=== PATIENT | male | born 2005 | race Caucasian/White ===

== ENCOUNTER 2024-07-12 23:39 | Emergency (ER) | payer BC, SELFPAY ==
[2024-07-12 23:41] VITALS: BP 123/77; PULSE 67; RESP 18; TEMP 36.6; O2SAT 98; BMI 23.7
--- NOTE | 2024-07-13 00:02 | ED.GENADULT ---
HPI - General Adult General Chief complaint: Lower Extremity Swelling Stated complaint: right leg infection Time Seen by Provider: 07/12/24 23:59 History of Present Illness HPI narrative: Patient presents to the emergency department complaining of leg pain, redness, and swelling. Patient states this started on Sunday morning . Patient described it as what he thought was a mosquito bite however the swelling has progressively spread and gotten worse. Patient was seen for this today in urgent care and placed on antibiotics. Patient was told to go to the ER if swelling or pain got worse and he believes it is continuing to get worse. 19-year-old in man presenting to the emergency department with concern of infection in his leg. Seen in urgent urgent care less than 12 hours ago with plan to monitor concern of cellulitis and possibly initiate antibiotics. Really worsened over the course the day now and pharmacy had not yet received prescription of antibiotics so he presents here as it is definitely more swollen. No noted fever. No drainage. Admittedly has not been maintaining full elevation. Related Data Home Medications ?Medication ?Instructions ?Recorded ?Confirmed No Known Home Medications 07/12/24 07/12/24 Allergies Allergy/AdvReac Type Severity Reaction Status Date / Time No Known Drug Allergies Allergy Verified 07/12/24 23:47 Review of Systems Status of ROS: Reports: 6 or more systems reviewed and unremarkable except as noted in History and below [facility] Social History Smoking Status: Never smoker How often do you have a drink containing alcohol: never How often do you have six or more drinks on one occasion: Never AUDIT-C Alcohol total score: 0 Non-prescribed substance use: denies use service: No Exam Narrative: Exam Narrative: Breathing easily. Generally seems like does not feel fully well. Seated in exam chair. Skin is warm and dry. Examination of the right lower leg in question shows 2 areas of possible bites. Lateral lower leg more inflamed around this site. Leg is generally mildly edematous, pitting and tender. Erythema extends through majority of the lower leg. Calor as well. Heart is regular rate Const: Vital Signs, click to edit/add: Vital Signs - 24 hr 07/12/24 23:41 Temperature 98 F Pulse Rate [Right Pulse Oximeter] 67 Respiratory Rate 18 Blood Pressure [Ri ght Upper Arm] 123/77 Pulse Oximetry 98 Oxygen Delivery Me thod Room Air Documenting provider has reviewed patient's vital signs: yes Course Vital Signs Vital signs: Initial Vital Signs Temperature 98 F 07/12/24 23:41 Temperature Source Temporal Artery Scan 07/12/24 23:41 Pulse Rate 67 07/12/24 23:41 Pulse Rhythm Regular 07/12/24 23:41 Pulse Strength 3+ Normal 07/12/24 23:41 Respiratory Rate 18 07/12/24 23:41 Blood Pressure 123/77 07/12/24 23:41 Blood Pressure Mean 92 07/12/24 23:41 Blood Pressure Position Sitting 07/12/24 23:41 Pulse Oximetry 98 07/12/24 23:41 Oxygen Delivery Method Room Air 07/12/24 23:41 Vital Signs Temperature 98 F 07/12/24 23:41 Pulse Rate 67 07/12/24 23:41 Respiratory Rate 18 07/12/24 23:41 Blood Pressure 123/77 07/12/24 23:41 Pulse Oximetry 98 07/12/24 23:41 Oxygen Delivery Method Room Air 07/12/24 23:41 Temperature 98 F 07/12/24 23:41 Pulse Rate 67 07/12/24 23:41 Respiratory Rate 18 07/12/24 23:41 Blood Pressure 123/77 07/12/24 23:41 Pulse Oximetry 98 07/12/24 23:41 Oxygen Delivery Method Room Air 07/12/24 23:41 Medications Administered Medications: Discontinued Medications Generic Name Dose Route Start Last Admin Trade Name Freq PRN Reason Stop Dose Admin Sodium Chloride 1,000 mls @ 1,000 mls/hr 07/13/24 00:08 07/13/24 02:15 0.9 % Sodium Chloride 1000 Ml IV 07/13/24 01:07 Infused .Q1H ONE Infusion Ceftriaxone Sodium 2 gm/ 100 mls @ 200 mls/hr 07/13/24 01:10 07/13/24 02:15 Sodium Chloride IVPB 07/13/24 01:11 Infused ONCE ONE Infusion Medical Decision Making MDM Narrative Medical decision making narrative: Elevating a little better here in this exam chair. Differential is inflammatory reaction related to insect bite plus/minus associated cellulitis. Will check labs for baseline. Normal white count but CRP moderately elevated. I think it would be a good idea to get started on antibiotics here in the emergency department. Placing IV, given Rocephin. As recommended earlier today, I think cephalexin is a reasonable choice for antibiotic coverage. Erythema lightly improved after. Elevation in the emergency department. Given some Tye wraps for compression as well. See patient discharge plan for further discussion Lab Data Lab results reviewed: Yes I reviewed the patient's lab results Labs: Lab Results 07/13/24 Range/Units 00:44 WBC 10.33 (4.50-11.00) K/uL RBC 5.09 (4.30-5.90) m/uL Hgb 14.8 (13.5-17.5) gm/dL Hct 43.7 (37.0-53.0) % MCV 86 (80-100) fL MCH 29 (26-34) pg MCHC 34 (32-36) gm/dL RDW Coeff of Kevyn 12.5 (11.5-15.5) % Plt Count 244 (140-440) K/uL Neut % (Auto) 67.9 (42.0-72.0) % Lymph % (Auto) 21.6 (20-44) % [place] % (Auto) 9.5 (0.0-11.0) % Eos % (Auto) 0.1 (0.0-7.0) % Baso % (Auto) 0.5 (0.0-3.0) % Neut # (Auto) 7.02 H (1.7-7.0) K/uL Lymph # (Auto) 2.23 (0.90-2.90) K/uL [place] # (Auto) 1.00 H (0.00-0.90) K/UL Eos # (Auto) 0.01 (0.00-0.50) K/uL Baso # (Auto) 0.05 (0.00-0.30) K/uL Abs Immat Gran (auto) 0.04 (0.00-0.30) K/uL Imm/Tot Granulo (auto) 0.4 % C-Reactive Protein 4.1 H (0.5-1.0) mg/dL Discharge Plan Discharge Clinical Impression: Cellulitis Patient Disposition: Home, Self-Care Condition: Improved Additional Instructions: It's really important that at rest you get this leg up as discussed. I would consider wrapping around the foot and ankle with the 4 in Tye wrap and then further up the leg with the six-inch Tye wrap. The six-inch Tye wrap is also helpful to hold on ice packs. Be seen for spreading redness after 2 days, new fever, marked increase in swelling or pain. Your received initial dose of Rocephin here in the emergency department. As per your visit in urgent care earlier, I am prescribing cephalexin from [facility]. Take this for 8 days Prescriptions: No Action No Known Home Medications Follow Up/Referrals: Provider,Not a Local [Primary Care Provider] - Stand Alone Forms: [employer] Info Instructions
--- OUTSIDE RECORDS SUMMARY | 2024-07-13 00:26 | XMS_ITS | Clinical Summary ---
Author Organization [facility] Address [address] [place] [address] Care Team Providers Care Shoe Planner Name Role Phone Elsewhere, Pcp Primary Care Provider Unavailabl e Source Comments Patient records contain information from all sites at [facility]. For routine questions regarding patient records, call [phone] during business hours, M-F 8:00 AM - 5:00 PM Central Time. Record requests for emergency care only can be directed to [phone] at any time.[facility] Allergies No known active allergies Medications Medication Sig Dispensed Refills Start Date End Date Status acetaminophen (TYLENOL) 325 mg tablet Take 650 mg by mouth every 6 (six) hours as needed. Active DME CPAPIndications:Obstruc tive Sleep Apnea Adult DME Order 1 each 03/22/2023 Active Active Problems Problem Noted Date Diagnosed Date Long QT Syndrome 12/26/2016 Encounters Date Type Department Care Team Description 06/22/2024 CPAP Download Remote Patient Monitoring [facility] [address] [place] [address] [facility] 05/27/2024 4:30 PM CDT - 05/27/2024 11:59 PM CDT Hospital Encounter Department of Radiology, [facility], in [place], [place] [address] [place] [address] Anthony Brown M.D. Pain Knee Left Discharge Disposition: Home or Self Care 05/27/2024 3:30 PM CDT Comprehensive Visit Department of Sports Medicine in [place], [place] [address] [place] [phone] Anthony Brown M.D. Ron Capps P.T., D.P.T. Pain Knee Left (Primary Dx) 05/27/2024 2:30 PM CDT Comprehensive Visit Department of Sports Medicine in [address] [phone] Anthony Brown M.D. Pain Knee Left (Primary Dx) 05/27/2024 10:48 AM CDT - 05/27/2024 4:29 PM CDT Hospital Encounter Department of Radiology, [facility], in [address] [phone] Anthony Brown M.D. Pain Knee Left Discharge Disposition: Home or Self Care 05/26/2024 9:00 AM CDT Telemedicine [facility] in [address] [phone] Jeffrey Mata M.B.B.S., MMiguel Obstructive Sleep Apnea Adult (Primary Dx) 05/22/2024 4:45 PM CDT Clinical Communication Virtual Review in [address] [phone] Pre-visit Intake 05/22/2024 CPAP Download Remote Patient Monitoring [facility] [address] [place] [phone] [facility], ProviderKalin, Ph.D. 05/02/2024 Orders Only Department of Sports Medicine in [address] [phone] Anthony Brown M.D. Pain Knee Left (Primary Dx) 04/21/2024 CPAP Download Remote Patient Monitoring [facility] [address] [place] [phone] [facility], ProviderKalin, Ph.D. from Last 3 Months Immunizations Name Administration Dates Next Due 9vHPV 07/19/2021,03/04/2021,01/20/2021 DTaP (Infanrix, Tripedia) 05/29/2007,08/05/2004 DTaP / Hep B / IPV (Pediarix) 2003, 003,2003 H1N1 All Forms 10/21/2009,09/13/2009 HepA Adult 11/10/2011,06/21/2011 HepA Pediatric/Adolescent 11/10/2011,06/21/2011 Hib (PRP-OMP) (PedvaxHIB) 2004,2003, 2003 IPV 05/29/2007 Influenza TIV (IM) 10/21/2009, 9,08/07/2008,2005,08/08/2005,09/21/2004,07/25/2004 Influenza, Injectable, Mdck, Preservative Free, Quadrivalent 08/11/2016,08/20/2015,08/21/2013,2007,07/16/2006,09/21/2004 Influenza, Injectable, Mdck, Quadrivalent 08/23/2012,06/21/2011,08/11/2010,2009,09/13/2009,06/23/2009,08/08/2005,1 Influenza, Injectable, Quadrivalent 01/2016,08/20/2015,08/21/2013,2007,07/16/2006,09/21/2004 MCV4 (Menveo) 04/29/2020,04/26/2016 MMR 08/05/2004 MMRV 05/29/2007 PCV20 12/19/2023 PCV7 (discontinued) 08/05/2004, 4,2003,2002 Rabies, Unspecified 04/05/2004, 4,03/15/2004,2003,03/08/2004 SARS-COV-2 (COVID-19) - PFIZ ER BIVALENT TS(Discontinued)(12 YEARS OR OLDER) 09/26/2022 Tdap 04/26/2016 Ty21a (oral) 12/19/2023 FRANSISCO 2004 influenza LAIV (Nasal) (2 ye ars through 49 years) 08/23/2012,06/21/2011,08/11/2010,2008 influenza trivalent vaccine (6 months and older)(PF) 10/21/2009,09/13/2009 influenza vaccine quad (FLUZONE/FLUARIX) (6 months and older)(PF) 12/19/2023,09/26/2022,09/28/2021,2019,06/30/2019,06/26/2018,08/29/2017,1 10/11/2015,08/20/2015,07/09/2014, 013,08/23/2012,06/21/2011,08/11/2010,,09/13/2009,06/23/2009 Social History Tobacco Use Types Packs/Day Years Used Date Smoking Tobacco: Never Tobacco Cessation:Counseling Given: Not Answered [facility] [employer] Answer Date Recorded In the past 12 months has e [employer], gas, oil, or water [employer] threatened to shut off services in your home? No 05/22/2024 Humiliation, Afraid, Rape, and Kick questionnair e Answer Date Recorded Within the last year, have y ou been afraid of your partner or ex-partner? No 03/20/2023 Within the last year, have y ou been humiliated or emotionally abused in other ways by your partner or ex-partner? No Within the last year, have y ou been kicked, hit, slapped, or otherwise physically hurt by your partner or ex-partner? No 03/20/2023 Within the last year, have y ou been raped or forced to have any kind of sexual activity by your partner or ex-partner? No 03/20/2023 Social Connection and Isolat ion Panel [NHANES] Answer Date Recorded In a typical week, how many times do you talk on the phone with family, friends, or neighbors? More than three times a week 02/19/2023 How often do you get togethe r with friends or relatives? More than three times a week 02/19/2023 How often do you attend [facility] or druze services? 1 to 4 times per year 02/19/2023 Do you belong to any clubs o r organizations such as synagogue groups, unions, fraternal or athletic groups, or school groups? Yes 02/19/2023 How often do you attend meet ings of the clubs or organizations you belong to? More than 4 times per year 02/19/2023 Are you , , di vorced, , never , or living with a partner? Never 02/19/2023 AUDIT-C Answer Date Recorded Q1: How often do you have a drink containing alc ohol? 2-4 times a month 02/19/2023 Q2: How many drinks containi ng alcohol do you have on a typical day when you are drinking? 5 or 6 02/19/2023 Q3: How often do you have si x or more drinks on one occasion? Less than monthly 02/19/2023 Overall Financial Resource Strain (CARDIA) Answe r Date Recorded How hard is it for you to pa y for the very basics like food, housing, medical care, and heating? Not hard at all 03/20/2023 [facility] - Occupational Stress Questionnaire Answer Date Recorded Do you feel stress - tense, restless, nervous, or anxious, or unable to sleep at night because your mind is troubled all the time - these days? Only a little 02/19/2023 Exercise Vital Sign Answer Date Recorde d On average, how many days pe r week do you engage in moderate to strenuous exercise (like a brisk walk)? 5 days 05/22/2024 On average, how many minutes do you engage in exercise at this level? 30 min 05/22/2024 Hunger Vital Sign Answer Date Recorded Within the past 12 months, y ou worried that your food would run out before you got the money to buy more. Never true 05/22/20 24 Within the past 12 months, t he food you bought just didn't last and you didn't have money to get more. Never true 05/22/2024 PRAPARE - Transportation Answer Date Re corded In the past 12 months, has l ack of transportation kept you from medical appointments or from getting medications? No 05/08 In the past 12 months, has l ack of transportation kept you from meetings, work, or from getting things needed for daily living? No 05/22/2024 Nutrition Answer Date Recorded On average, how many serving s of fruits and vegetables do you eat per day (serving size is equal to 1 cup or approximately the size of a tennis ball)? 3-5 05/22/2024 Dental Answer Date Recorded Dental: Regular Dentist Yes 10/11/19 Employment Answer Date Recorded Employment status Employed and actively working without restrictions 05/22/2024 Housing Stability Answer Date Recorded What is your living situation today? I have a [facility] [address] to live 05/22/2024 Education Answer Date Recorded What is the highest level of school you have completed or the highest degree you have received? 12th grade 02/19/2023 Sex and Gender Information Value Date Recorded Sex Assigned at Male 10/11/2021 4:56 PM [employer] Gender Identity Male 10/11/2021 4:56 PM [employer] Sexual Orientation Straight 10/11/2021 4: 56 PM [employer] Last Filed Vital Signs Vital Sign Reading Time Taken Comments Blood Pressure - - Pulse - - Temperature - - Respiratory Rate - - Oxygen Saturation - - Inhaled Oxygen Concentration - - Weight 93.5 kg (206 lb 2.1 oz) 12/19/2023 8:43 A M CDT Height 199 cm (6' 6.35) 12/19/2023 8:43 AM CDT Body Mass Index 23.61 12/19/2023 8:43 AM CDT Plan of Treatment Health Maintenance Due Date Last Done Comments HIV Screening 2003 Hearing Screening during Wel l Child Visit 2003 Hepatitis C Screening [address] [facility] Chi ld Visit 2003 1 week Well Child Check-Up 2003 1 month Well Child Check-Up 2003 2 month Well Child Check-Up 2003 4 month Well Child Check-Up 2003 6 month Well Child Check-Up 2003 9 month Well Child Check-Up 01/11/2004 12 month Well Child Check-Up 04/11/2004 15 month Well Child Check-Up 07/12/2004 18 month Well Child Check-Up 10/12/2004 2 year Well Child Check-Up 04/11/2005 30 month Well Child Check-Up 10/12/2005 3 year Well Child Check-Up 04/11/2006 Well Child Check-Up Complete d in Past Year 04/11/2006 4 year Well Child Check-Up 04/11/2007 5 year Well Child Check-Up 04/11/2008 6 year Well Child Check-Up 04/11/2009 7 year Well Child Check-Up 04/11/2010 8 year Well Child Check-Up 04/11/2011 9 year Well Child Check-Up 04/11/2012 10 year Well Child Check-Up 04/11/2013 11 year Well Child Check-Up 04/11/2014 12 year Well Child Check-Up 04/11/2015 13 year Well Child Check-Up 04/11/2016 14 year Well Child Check-Up 04/11/2017 15 year Well Child Check-Up 04/11/2018 16 year Well Child Check-Up 04/11/2019 17 year Well Child Check-Up 04/11/2020 18 year Well Child Check-Up 04/11/2021 19 year Well Child Check-Up 04/11/2022 20 year Well Child Check-Up 04/11/2023 Depression Screening (Annual PHQ-2) 10/08/2023 19 year Well Child Check-Up 04/11/2024 Well Child Check-Up (WCC) 04/11/2024 COVID-19 Vaccine (5 - 2023-2 5 season) 2024 09/26/2022, 03/01/2022, 09/28/2021, Additional history exists Influenza Vaccine (#1) 2024 , 09/26/2022, 09/28/2021, Additional history exists DTaP,Tdap,and Td Vaccines (7 - Td or Tdap) 04/26/2026 04/26/2016, 05/29/2007, 08/05/2004, Additional history exists Hepatitis B Vaccines Completed 2003, 2003, 2003 Varicella Vaccines Completed 05/29/2007, 2004 Meningococcal Vaccine Completed 04/29/2020, 016 HPV Vaccines Completed 07/19/2021, 02/06, 01/20/2021 Pneumococcal vaccine (0-64 years) Completed 12/19/2023, 08/05/2004, 2003, Additional history exists Procedures Procedure Name Priority Date/Time Associated Diagnosis Comments MR KNEE LEFT WITHOUT IV CONTRAST RAD - Routine (most inpatients and all outpatients) 05/27/2024 6:07 PM CDT Pain Knee Left DX KNEE LEFT 3 VIEWS RAD - Routine (most inpatients and all outpatients) 05/27/2024 11:20 AM CDT Pain Knee Left from Last 3 Months Results * MR Knee Left without IV Contrast (05/27/2024 6:07 PM CDT) Anatomical Region Laterality Modality Lower Extremity, Knee, Muscu loskeletal RST LOS, Musculoskeletal ARZ LOS, Muskuloskeletal FLA LOS Left Magne tic Resonance Impressions 05/28/2024 11:13 AM CDT 1. Persistent mild T2 hyperintense signal involving the proximal superficial MCL, suggestive of chronic low-grade sprain. No high-grade or full-thickness tear. 2. Approximately 2.4 cm multilobulated ganglion cyst in the anteromedial left knee joint, increased in size since 12/21/2022. Narrative 05/28/2024 11:13 AM CDT EXAM: ??MR KNEE LEFT WITHOUT IV CONTRAST COMPARISON: ??Left knee radiographs 05/27/2024, MRI 12/21/2022. FINDINGS: ??MRI of the left knee without gadolinium. Normal ACL and PCL. There is mild persistent T2 hyperintense signal within and along the superficial MCL origin, particularly at its undersurface (series 5 image 20, series 9 images 13-16). The MCL is otherwise intact, without high-grade or full-thickness tear. The LCL, popliteus, and remainder of the posterolateral corner structures are unremarkable. Mild proximal patellar tendinopathy. The extensor mechanism is intact. Normal pes anserine tendons. Normal appearance of the medial and lateral menisci, without a discrete tear. Articular cartilage is preserved throughout the joint. No bone marrow edema or acute fracture. Trace knee joint effusion. Extremely tiny Gutierrez's cyst. Compared to the prior MRI, increased size of a multilobulated ganglion cyst in the anterior knee. Its posterior margin is near the distal ACL and anterior root of the lateral meniscus, and it extends anteriorly into the inferomedial aspect of Hoffa's fat pad. In total, this measures approximately 2.4 x 1.8 x 1.2 cm (series 5 image 28-30, series 9 image 22). Mild reticulated edema-like signal in Hoffa's fat pad. Muscular signal intensity and bulk is normal. Unremarkable neurovascular structures. Procedure Note Marti Flores M.D. - 05/28/2024 EXAM: MR KNEE LEFT WITHOUT IV CONTRAST COMPARISON: Left knee radiographs 05/27/2024, MRI 12/21/2022. FINDINGS: MRI of the left knee without gadolinium. Normal ACL and PCL. There is mild persistent T2 hyperintense signal withinand along the superficial MCL origin, particularly at its undersurface(series 5 image 20, series 9 images 13-16). The MCL is otherwise intact,without high-grade or full-thickness tear. The LCL, popliteus, and remainder of theposterolateral corner structures are unremarkable. Mild proximal patellartendinopathy. The extensor mechanism is intact. Normal pes anserinetendons. Normal appearance of the medial and lateral menisci, without a discretetear. Articular cartilage is preserved throughout the joint. No bonemarrow edema or acute fracture. Trace knee joint effusion. Extremely tiny Gutierrez's cyst. Compared to the prior MRI, increased size of a multilobulated ganglioncyst in the anterior knee. Its posterior margin is near the distal ACL andanterior root of the lateral meniscus, and it extends anteriorly into theinferomedial aspect of Hoffa's fat pad. In total, this measures approximately 2.4 x 1.8 x 1.2 cm (series 5image 28- 30, series 9 image 22). Mild reticulated edema-like signal inHoffa's fat pad. Muscular signal intensity and bulk is normal. Unremarkable neurovascularstructures. IMPRESSION: 1. Persistent mild T2 hyperintense signal involving the proximalsuperficial MCL, suggestive of chronic low-grade sprain. No high-grade orfull-thickness tear. 2. Approximately 2.4 cm multilobulated ganglion cyst in the anteromedialleft knee joint, increased in size since 12/21/2022. Anthony Brown M.D. [facility] MRI PROCEDURES * DX Knee Left 3 Views (05/27/2024 11:20 AM CDT) Anatomical Region Laterality Modality Lower Extremity, Knee, Muscu loskeletal RST LOS, Musculoskeletal ARZ LOS, Muskuloskeletal FLA LOS Left Digit al Radiography Impressions 05/27/2024 11:45 AM CDT Left knee joint spaces are preserved. No significant effusion. No radiographic fractures. Unchanged slight chronic-appearing deformity medial proximal fibular shaft. Narrative 05/27/2024 11:45 AM CDT EXAM: ??DX KNEE LEFT 3 VIEWS Procedure Note Ethan Shields M.D. - 05/27/2024 EXAM: DX KNEE LEFT 3 VIEWS IMPRESSION: Left knee joint spaces are preserved. No significant effusion. Noradiographic fractures. Unchanged slight chronic-appearing deformitymedial proximal fibular shaft. Anthony Brown M.D. IMG DIAGNOSTIC IMAGI NG PROCEDURES from Last 3 Months Care Teams Shoe Planner Relationship Specialty Start Date End Date Elsewhere, Pcp PCP - General Internal Medicine 03/20/23
--- OUTSIDE RECORDS SUMMARY | 2024-07-13 00:26 | XMS_ITS | Encounter Summary ---
Author Organization [facility] Address [address] [place] [address] Care Team Providers Care Inspector Conveyor Line Name Role Phone Elsewhere, Pcp Primary Care Provider Unavailabl e Reason for Referral * Outpatient (Routine) - Closed Specialty Diagnoses / Procedures Referred By Contac t Referred To Contact Diagnoses Pain Knee Left Procedures DX Knee Left 3 Views Anthony Brown M.D. 200 [place] [phone] [facility] Referral ID Status Reason Start Date Expiration Date Visits Re quested Visits Authorized [id number] Closed 05/02/2024 05/02/2025 1 1 Reason for Visit * Outpatient (Routine) - Closed Specialty Diagnoses / Procedures Referred By Contac t Referred To Contact Diagnoses Pain Knee Left Procedures DX Knee Left 3 Views Anthony Brown M.D. 200 [place] [phone] [facility] Referral ID Status Reason Start Date Expiration Date Visits Re quested Visits Authorized [id number] Closed 05/02/2024 05/02/2025 1 1 Encounter Details Date Type Department Care Team (Latest Contact Info) Description 05/27/2024 10:48 AM CDT - 05/27/2024 4:29 PM CDT Hospital Encounter Department of Radiology, [facility], in [place], [place] 200 [place] [phone] Anthony Brown M.D. 200 [place] [phone] Pain Knee Left Discharge Disposition: Home or Self Care Social History Tobacco Use Types Packs/Day Years Used Date Smoking Tobacco: Never [facility] Utilities Answer Date Recorded In the past 12 months has e [employer], gas, oil, or water [employer] threatened to shut off services in your [...] week 02/19/2023 How often do you attend chur ch or hoahaoism services? 1 to 4 times per year 02/19/2023 Do you belong to any clubs o r organizations such as mu-ism groups, unions, fraternal or athletic groups, or [...] and heating? Not hard at all 03/20/2023 [facility] - Occupational Stress Questionnaire Answer Date Recorded [...] your living situation today? I have a [facility] place to live 05/22/2024 Education Answer Date Recorded What is the highest level of school you have completed or the highest degree you have received? 12th grade 02/19/2023 Sex and Gender Information Value Date Recorded Sex Assigned at Male 10/11/2021 4:56 PM VENDOR REPRESENTATIVES Gender Identity Male 10/11/2021 4:56 PM VENDOR REPRESENTATIVES Sexual Orientation Straight 10/11/2021 4: 56 PM VENDOR REPRESENTATIVES documented as of this encounter Medications at Time of Discharge Medication Sig Dispensed Refills Start Date End Date acetaminophen (TYLENOL) 325 mg tablet Take 650 mg by mouth every 6 (six) hours as needed. DME CPAPIndications:Obstructiv e Sleep Apnea Adult DME Order 1 each 03/22/2023 documented as of this encounter Plan of Treatment Not on file documented as of this encounter Procedures Procedure Name Priority Date/Time Associated Diagnosis Comments DX KNEE LEFT 3 VIEWS RAD - Routine (most inpatients and all outpatients) 05/27/2024 11:20 AM CDT Pain Knee Left documented in this encounter Results * DX Knee Left 3 Views (05/27/2024 [...] slight chronic-appearing deformitymedial proximal fibular shaft. Anthony MALIK DIAGNOSTIC IMAGI NG PROCEDURES documented in this encounter Visit Diagnoses Diagnosis Pain Knee Left documented in this encounter Additional Health Concerns Assessment Noted Time PHQ-9 Depression Total Score: 4 10/09/19 18 12:01 AM VENDOR REPRESENTATIVES documented as of this encounter Care Teams Inspector Conveyor Line Relationship Specialty Start Date End Date Elsewhere, Pcp PCP - General Internal Medicine 03/20/23 documented as of this encounter
--- OUTSIDE RECORDS SUMMARY | 2024-07-13 00:26 | XMS_ITS | Encounter Summary ---
Author Organization [facility] Address [address] [place] [address] Care Team Providers Care Machine Shop Supervisor Name Role Phone Elsewhere, Pcp Primary Care Provider Unavailabl e Reason for Visit * Outpatient (Routine) - Closed Specialty Diagnoses / Procedures Referred By Fausto chery Referred To Contact Sports Medicine Diagnoses Pain Knee Left Anthony Brown M.D. [address] [place] [phone] [facility] Referral ID Status Reason Start Date Expiration Date Visits Re quested Visits Authorized [id number] Closed 05/02/2024 11/01/2025 1 1 Encounter Details Date Type Department Care Team (Latest Contact Info) Description 05/27/2024 3:30 PM CDT Comprehensive Visit Department of Sports Medicine in [place], [place] [address] [place] [phone] Anthony Brown M.D. [address] [place] [phone] Ron Capps P.T., D.P.T. [address] [place] [phone] Pain Knee Left (Primary Dx) Social History Tobacco Use Types Packs/Day Years Used Date Smoking Tobacco: Never [facility] Utilities Answer Date Recorded In the past 12 months has e [employer], [employer], oil, or water [employer] threatened to shut off services in your [...] often do you attend chur ch or synagogue services? 1 to 4 times per year 02/19/2023 Do you belong to any clubs o r organizations such as restoration groups, unions, fraternal or athletic groups, or [...] and heating? Not hard at all 03/20/2023 [facility] - Occupational Stress Questionnaire Answer Date Recorded [...] Sex Assigned at Male 10/11/2021 4:56 PM HOME CONNECT LPN Gender Identity Male 10/11/2021 4:56 PM HOME CONNECT LPN Sexual Orientation Straight 10/11/2021 4: 56 PM HOME CONNECT LPN documented as of this encounter Consult Notes * Ron Capps P.T., D.P.T. - 05/27/2024 3:30 PM CDT Sports Medicine Physical Therapy Visit SUBJECTIVE Patient's Name: Doug Colmenares Referring Provider: Anthony Brown M.D. Visit Diagnosis: 1. Pain Knee Left Payor: [employer] / Plan: [facility] / Product Type: PPO / Epic Visit Count: 1 PERTINENT MEDICAL / SURGICAL HISTORY: Patient Active Problem List Diagnosis Long QT Syndrome No past surgical history on file. Doug Colmenares is a 19 y.o. male who presented to sports medicine physical therapy for evaluation of left medial knee pain. PMH: Patient reports the onset of symptoms early 2022 when he describes an acute valgus moment of the knee while learning to cross country ski. At that time was able to weightbear, does note significant swelling at that time. MRI obtained about a month later demonstrated an MCL injury. Participatedin PT for 3 visits then was diligent about doing those exercises on his own at college. Symptoms did improve to the point that he was able to participate in water polo in the fall of 2022 although notes that he had to modify how he kicked with his left. Was playing basketball but required use of hinged knee brace. Spent most of the spring of 2023 hiking/backpacking (no swimming, water polo, basketball) while studying abroad and noticed gradual worsening of pain. Occasional tweaking of knee whenwalking on uneven ground, however no major injury since the initial one. Most recently has been running, strength training, and swimming however need to modify his kick on the left. Pain Summary: Location of pain: medial knee, points to anteromedial knee as main location of pain How would you describe your pain: achy, sharp, stabbing, and throbbing Scale 0-10 patient rates pain: 7/10 at its worse, 0/10 at its best Patient reports the following alleviating factors: rest and stretching, strengthening Patient reports the following exacerbating factors: Breast stroke kicks, treading water, quick pivoting/cutting movements. Running, walking, standing will aggravate after a prolonged period of time. Social History: Current Activity Level: Able to perform most tasks but pain persists Patient's Goal(s): Understand what he can do to improve his knee OBJECTIVE Diagnostic Tests: Imaging No results found. Observation: no swelling, deformity, or discoloration Tenderness to palpation: none Range of motion: Symmetric and pain free Special tests: The following special tests were negative: Valgus Stress (30 degrees), Varus Stress (30 degrees), and Rocío's Gait: no obvious abnormalities TREATMENT Review of above findings, interventions to address findings, and appropriate modifications/progressions for interventions and activities Review, discussion, and collaboration regarding goals and plan of care Reviewed that patient has the right to make decisions regarding their care, including refusal of examination or treatment and can select services from another provider if desired Education: Discussed reduced proprioceptive sense within the knee impacted limb that could have onset after initial injury. Recommended prioritization of single-leg exercises that challenge the lateral and medial musculature of the hip Home Exercise Program: Warm-Up: Stationary Bike: 5 minutes Primary Exercises (3 times per week) Lateral mini-band walks: 4 x 10yds., green resistance band Note: maintain low trunk position with shoulders up, avoid bobbing movements. Should primary feelexercise in the lateral hip. Single leg RDL: 3 x 12 Note: as you improve progress to resisted single leg movements (i.e., adding 5- 10 pounds), left legwill be on the ground while reaching with right hand Isometric side-plank on plyometric box: 3 x 10s, 12 plyometric box; progress to long-lever movement as able (i.e., straight leg without knee in contact with box) [facility] ball toss: 4 x 6e, 8lbs resistance Note: ball toss should be at shoulder level All the patient's questions were answered. Assessment Clinical Impression: Doug is a 19 y.o. male who presented to physical therapy with concerns of persisting medial knee pain with valgus stressors. Upon assessment, he demonstrated relative instability with single-leg hinge patterns that could be indicative of reduced lateral hip strength and proprioception. We provided him with a series of exercises that challenge both his balance and proximalhip musculature. Recommended that he connect with us at sports medicine if he has additional questions. He would benefit from skilled physical therapy to address the above impairments, limitations, and deficits. I anticipate he will be able to return to prior level of function with continued skilled physical therapy. Doug has good potential to achieve established physical therapy goals within thetime frame outlined below, provided he actively participates in his physical therapy treatment planand home program. Patient agrees with the plan of care and goals. Functional Goals and Timeframes: Patient will be able to resume full participation in water polo with minimal to no discomfort within 3 months. Patient will report greater than 3+ on Global Rating of Change (GROC) within 2 visits. Plan Treatment Plan: Start of Plan of Care: 05/27/2024 Treatment interventions may include: Treatment/Interventions: Therapeutic exercise, Therapeutic functional activity, Neuromuscular re-education, Manual therapy, Gait training, Therapeutic modalities as needed PT Frequency: 1x per week, PRN Expected Number of Visits: 6 Plan Status: Plan of care initiated Additional Plan Comments: Progress with single leg movements as able Billing Summary: Personal factors and/or comorbidities (3 is moderate complexity): none none Examination elements (body structures & functions, activity limitations, participation restrictions): 1-2 Clinical presentation: Stable or uncomplicated characteristics Clinical decision making complexity: Low Time Spent with Patient Evaluations PT Eval - Low Complexity: 10 min Therapeutic Interventions Therapeutic Exercise (min): 25 min Time Tracking Total Timed Units (min): 25 min Total Treatment Time (min): 35 min Ron Capps P.T., D.P.T. documented in this encounter Plan of Treatment Not on file documented as of this encounter Visit Diagnoses Diagnosis Pain Knee Left- Primary documented in this encounter Additional Health Concerns Assessment Noted Time PHQ-9 Depression Total Score: 4 10/09/19 18 12:01 AM HOME CONNECT LPN documented as of this encounter Care Teams Machine Shop Supervisor Relationship Specialty Start Date End Date Elsewhere, Pcp PCP - General Internal Medicine 03/20/23 documented as of this encounter
--- OUTSIDE RECORDS SUMMARY | 2024-07-13 00:26 | XMS_ITS | Encounter Summary ---
Author Organization [facility] Address [address] [place] [address] Care Team Providers Care Cotton Buyer Name Role Phone Elsewhere, Pcp Primary Care Provider Unavailabl e Reason for Visit * Outpatient (Routine) - Closed Specialty Diagnoses / Procedures Referred By Fausto chery Referred To Contact Sleep Medicine Kaelyn Ann M.D. [address] [place] [phone] [facility] Referral ID Status Reason Start Date Expiration Date Visits Re quested Visits Authorized [id number] Closed 03/22/2023 03/21/2026 1 1 Encounter Details Date Type Department Care Team (Late st Contact Info) Description 05/26/2024 9:00 AM CDT Tele[facility]icine [facility] in [place], [place] [address] [place] [phone] Jeffrey Mata M.B.B.S., M.D. [address] [place] [phone] Obstructive Sleep Apnea Adult (Primary Dx) Social History Tobacco Use Types Packs/Day Years Used Date Smoking Tobacco: Never [facility] Utilities Answer Date Recorded In the past 12 months has e electric, gas, oil, or water company threatened to shut off services in your [...] week 02/19/2023 How often do you attend [facility] or rastafarian services? 1 to 4 times per year 02/19/2023 Do you belong to any clubs o r organizations such as pentecostal groups, unions, fraternal or athletic groups, or [...] and heating? Not hard at all 03/20/2023 [facility] Occup[facility] ional [facility] - Occupational Stress [...] your living situation today? I have a [facility] place to live 05/22/2024 Education Answer Date Recorded What is the highest level of school you have completed or the highest degree you have received? 12th grade 02/19/2023 Sex and Gender Information Value Date Recorded Sex Assigned at Male 10/11/2021 4:56 PM CHIP BIN CONVEYOR TENDER Gender Identity Male 10/11/2021 4:56 PM CHIP BIN CONVEYOR TENDER Sexual Orientation Straight 10/11/2021 4: 56 PM CHIP BIN CONVEYOR TENDER documented as of this encounter Progress Notes * Jeffrey Mata M.B.B.S., M.D. - 05/26/2024 9:00 AM CDT ROUTINE CPAP RETURN Doug is a now 19-year-old who was diagnosed with mild obstructive sleep apnea following a sleepstudy on the 31 October 2021 which showed an AHI of 7. He was on auto CPAP with pressures set between 5-12. Was last seen at the sleep center on the 16 December 2021. He was doing reasonably well onCPAP. On interview today he tells me that he continues to do well on CPAP. He is using it most nights. Hewas traveling in March and had stopped using his CPAP at that point. He tells me that he noticed that his sleep was not as good at that time. Otherwise he notes that he has no problems with sleep initiation and maintenance. He does not note any snoring or catathrenia while using CPAP. He feels rested upon awakening. I do not have a download from today to review. VITAL SIGNS Current Outpatient Medications: acetaminophen (TYLENOL) 325 mg tablet, Take 650 mg by mouth every 6 (six) hours as needed., Disp: ,Rfl: DME CPAP, DME Order, Disp: 1 each, Rfl: 0 ASSESSMENT / PLAN #1 Mild obstructive sleep apnea with good initial response to CPAP Plan: 1. He should continue to remain on CPAP and use it regularly as he is currently doing. 2. If he were to require a renewal prescription he can let us know. 3. Follow-up can be every 3 years. documented in this encounter Plan of Treatment Not on file documented as of this encounter Visit Diagnoses Diagnosis Obstructive Sleep Apnea Adult- Primary documented in this encounter Additional Health Concerns Assessment Noted Time PHQ-9 Depression Total Score: 4 10/09/19 18 12:01 AM CHIP BIN CONVEYOR TENDER documented as of this encounter Care Teams Cotton Buyer Relationship Specialty Start Date End Date Elsewhere, Pcp PCP - General Internal Medicine 03/20/23 documented as of this encounter
--- OUTSIDE RECORDS SUMMARY | 2024-07-13 00:26 | XMS_ITS | Referral Summary ---
Author Organization [facility] Address [address] [place] [address] Care Team Providers Care Diver Helper Name Role Phone Elsewhere, Pcp Primary Care Provider Unavailabl e Source Comments Patient records contain information from all sites at [facility]. For routine questions regarding patient records, call [phone] during business hours, M-F 8:00 AM - 5:00 PM Central Time. Record requests for emergency care only can be directed to [phone] at any time.[facility] Encounters Date Type Department Care Team Description 06/22/2024 CPAP Download Remote Patient Monitoring [facility] 200 [place] [phone] [facility], Kalin Montoya, Ph.D. 05/27/2024 4:30 PM CDT - 05/27/2024 11:59 PM CDT Hospital Encounter Department of Radiology, [facility] in [place], [place] [address] [place] [phone] Anthony Brown M.D. Pain Knee Left Discharge Disposition: Home or Self Care 05/27/2024 10:48 AM CDT - 05/27/2024 4:29 PM CDT Hospital Encounter Department of Radiology, [facility] in [place], [place] [address] [place] [address] Anthony Brown M.D. Pain Knee Left Discharge Disposition: Home or Self Care 05/27/2024 2:30 PM CDT Comprehensive Visit Department of Sports Medicine in [place], [place] [address] [place] [phone] Anthony Brown M.D. Pain Knee Left (Primary Dx) 05/27/2024 3:30 PM CDT Comprehensive Visit Department of Sports Medicine in [address] [phone] Anthony Brown M.D. Gibson, Dylan J, P.T., D.P.T. Pain Knee Left (Primary Dx) 05/26/2024 9:00 AM CDT Telemedicine Center for Sleep Medicine in [address] [phone] Jeffrey Mata M.B.B.S., MAnderson. Obstructive Sleep Apnea Adult (Primary Dx) 05/22/2024 CPAP Download Remote Patient Monitoring [facility] [address] [place] [phone] [facility], Kalin Montoya, Ph.D. 05/22/2024 4:45 PM CDT Clinical Communication Virtual Review in [address] [phone] Pre-visit Intake 05/02/2024 Orders Only Department of Sports Medicine in [address] [phone] Anthony Brown M.D. Pain Knee Left (Primary Dx) 04/21/2024 CPAP Download Remote Patient Monitoring [facility] [address] [place] [phone] [facility], Kalin oMntoya, Ph.D. from Last 3 Months Allergies No known active allergies Medications Medication Sig Dispensed Refills Start Date End Date Status acetaminophen (TYLENOL) 325 mg tablet Take 650 mg by mouth every 6 (six) hours as needed. Active DME CPAPIndications:Obstruc tive Sleep Apnea Adult DME Order 1 each 03/22/2023 Active Active Problems Problem Noted Date Diagnosed Date Long QT Syndrome 12/26/2016 Immunizations Name Administration Dates Next Due 9vHPV [...] Tobacco: Never Tobacco Cessation:Counseling Given: Not Answered [facility] [employer]ities Answer Date Recorded In the past 12 months has e [employer], gas, oil, or water [employer] threatened to shut off services in your [...] week 02/19/2023 How often do you attend [facility] or baptism services? 1 to 4 times per year 02/19/2023 Do you belong to any clubs o r organizations such as congregation groups, unions, fraternal or athletic groups, or [...] and heating? Not hard at all 03/20/2023 [facility] - Occupational Stress Questionnaire Answer Date Recorded [...] Sex Assigned at Male 10/11/2021 4:56 PM SUPERVISOR ORCHARD Gender Identity Male 10/11/2021 4:56 PM SUPERVISOR ORCHARD Sexual Orientation Straight 10/11/2021 4: 56 PM SUPERVISOR ORCHARD Last Filed Vital Signs Vital Sign Reading [...] 12/19/2023 8:43 AM CDT Plan of Treatment Not on file Procedures Procedure Name Priority Date/Time Associated Diagnosis [...] joint, increased in size since 12/21/2022. Anthony MALIK MRI PROCEDURES * DX Knee Left 3 [...] slight chronic-appearing deformitymedial proximal fibular shaft. Anthony OWENS DIAGNOSTIC IMAGI NG PROCEDURES from Last 3 Months Administered Medications Care Teams Diver Helper Relationship Specialty Start Date End Date Elsewhere, Pcp PCP - General Internal Medicine 03/20/23
--- OUTSIDE RECORDS SUMMARY | 2024-07-13 00:26 | XMS_ITS ---
Author Organization [facility] Address [address] [address] Care Team Providers Care Sales Management Trainee Name Role Phone Unavailable Unavailable Unavailable Surgery Details Not on file Complications Check Surgery Details section. Procedure Estimated Blood Loss Check Surgery Details section. Procedure Findings Check Surgery Details section. Procedure Specimens Taken Check Surgery Details section.
--- OUTSIDE RECORDS SUMMARY | 2024-07-13 00:26 | XMS_ITS | Encounter Summary ---
Author Organization [facility] Address [address] [place] [address] Care Team Providers Care Biostatistician Name Role Phone Elsewhere, Pcp Primary Care Provider Unavailabl e Encounter Details Date Type Department Care Team (Late st Contact Info) Description 06/22/2024 CPAP Download Remote Patient Monitoring [facility] [address] [place] [phone] [facility], Provider, M.B., Ph.D. Social History Tobacco Use Types Packs/Day Years Used Date Smoking Tobacco: Never [facility] [employer]ities Answer Date Recorded In the past [address] [facility] [place] electric, gas, oil, or water [employer] threatened to shut off services in your [...] often do you attend chur ch or scientologist services? 1 to 4 times per year 02/19/2023 Do you belong to any clubs o r organizations such as rastafarian groups, unions, fraternal or athletic groups, or [...] heating? Not hard at all 03/20/2023 [facility] Occupat ional [facility] - Occupational Stress [...] your living situation today? I have a [facility] place to live 05/22/2024 Education Answer Date Recorded What is the highest level of school you have completed or the highest degree you have received? 12th grade 02/19/2023 Sex and Gender Information Value Date Recorded Sex Assigned at Male 10/11/2021 4:56 PM TRIMMER AND BORER MACHINE OPERATOR Gender Identity Male 10/11/2021 4:56 PM TRIMMER AND BORER MACHINE OPERATOR Sexual Orientation Straight 10/11/2021 4: 56 PM TRIMMER AND BORER MACHINE OPERATOR documented as of this encounter Plan of Treatment Not on file documented as of this encounter Visit Diagnoses Not on filedocumented in this encounter Additional Health Concerns Assessment Noted Time PHQ-9 Depression Total Score: 4 10/09/19 18 12:01 AM TRIMMER AND BORER MACHINE OPERATOR documented as of this encounter Care Teams Biostatistician Relationship Specialty Start Date End Date Elsewhere, Pcp PCP - General Internal Medicine 03/20/23 documented as of this encounter
--- OUTSIDE RECORDS SUMMARY | 2024-07-13 00:26 | XMS_ITS | Encounter Summary ---
Author Organization [facility] Address [address] [place] [address] Care Team Providers Care Desktop Manager Name Role Phone Elsewhere, Pcp Primary Care Provider Unavailabl e Reason for Visit * Appointment Request (Routine) - Closed Specialty Diagnoses / Procedures Referred By Fausto chery Referred To Contact Sports Medicine Diagnoses Pain Knee Left Referral ID Status Reason Start Date Expiration Date Visits Re quested Visits Authorized [id number] Closed 04/18/2024 04/18/2025 1 1 Encounter Details Date Type Department Care Team (Latest Contact Info) Description 05/27/2024 2:30 PM CDT Comprehensive Visit Department of Sports Medicine in [place], [place] [address] [place] [address] Anthony Brown M.D. [address] [place] [phone] Pain Knee Left (Primary Dx) Social History Tobacco Use Types Packs/Day Years Used Date Smoking Tobacco: Never [facility] Utilities Answer Date Recorded In the [...] 02/19/2023 How often do you attend chur or church services? 1 to 4 times per year 02/19/2023 Do you belong to any clubs o r organizations such as orthodoxy groups, unions, fraternal or athletic groups, or [...] and heating? Not hard at all 03/20/2023 [facility] [place] of Occupat ional Health - Occupational Stress [...] your living situation today? I have a [facility] place to live 05/22/2024 Education Answer Date Recorded What is the highest level of school you have completed or the highest degree you have received? 12th grade 02/19/2023 Sex and Gender Information Value Date Recorded Sex Assigned at Male 10/11/2021 4:56 PM POCKET CREASER Gender Identity Male 10/11/2021 4:56 PM POCKET CREASER Sexual Orientation Straight 10/11/2021 4: 56 PM POCKET CREASER documented as of this encounter Consult Notes * Thien Villanueva M.D. 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 here out of concern for left medial knee pain. Also does basketball, running, lifting, swimming. Patient reports the onset of symptoms early 2022 when he describes an acute valgus moment of the knee while learning to cross country ski. At that time was able to weightbear, does note significant swelling at that time. MRI obtained about a month later demonstrated an MCL injury. Participated in PT for 3 visits then was diligent [...] worsening of pain. Occasional tweaking of knee when walking on uneven ground, however no major injury since the initial one. Most recently has been running,strength training, and swimming however need to modify his kick on the left. Overall symptoms are: worse Location of pain: medial knee, points to [...] aggravate after a prolonged period of time. Patient reports swelling with initial injury, feels that tissue over the medial knee has remained slightly swollen compared to right. Patients denies bruising. Patient denies locking, catching, mechanical symptoms. List any prior medications or treatments: PT, hinged knee brace, activity modification Prior injury/surgery to this area: No Review of symptoms: Patient denies constitutional symptoms such as fevers/chills, weight loss, nocturnal pain, back pain, or fatigue. PMH: No past medical history on file. Fam Hx: No FH of joint disease/autoimmune disease or nerve problems. SOCIAL HX: Social History Social History Narrative Not on file Objective: There were no vitals taken for this visit. Physical Exam Constitutional General: Well-appearing, no acute distress. HEENT Head: Normocephalic and atraumatic. Eyes General: No scleral icterus. Pulmonary Effort: Pulmonary effort is normal. No respiratory distress. Skin: Skin is warm and dry. Skin is not jaundiced and visualized portions of the skin without rashes. Neurological General: No focal deficit present. Mental Status: Alert. Psychiatric Mood and Affect: Mood normal. Behavior: Behavior normal.Thought Content: Thought content normal. Musculoskeletal: Knee: left Inspection: Normal appearance. No signs of muscle atrophy around the surrounding musculature of theknees. Palpation: Patient has no effusion. Tenderness to palpation present over the medial joint line and proximally near MCL insertion. To a lesser extent at the medial patellar facet. No tenderness to palpation over the remaining joint spaces, bony landmarks, and soft tissues. ROM: Full and symmetric bilaterally, able to achieve neutral extension, approximately 135 flexion bilaterally. Passive hip range of motion with log roll and internal/external rotation of the hip is without pain. Strength: Full in bilateral lower extremities without pain. Extensor mechanism intact Neurovascular: No deficits in sensation to light touch throughout the lower extremity. Lower extremity with normal color and brisk cap refill. Gait: Nonantalgic gait. Notes weakness and feeling of instability with single leg squat. Special tests: Pain with valgus stress testing at 0 and 30??, clear endpoint, possible slight laxity when compared to contralateral side. Negative Rocío's, anterior, posterior drawer, Nahun's, bounce home Data/Diagnostic Studies: Radiographic interpretation: I personally have reviewed the radiographs of the left knee. There is no significant effusion or sign of fracture. Prior outside MRI report in 2022 stating contusion of MCL complex, with partial tear of mid segmentof tibial collateral ligament, low-grade edema or strain of the insertional semimembranosus tendon,small area of low-grade bone contusion in the posterior lateral femoral condyle, intact medial and lateral menisci. ASSESSMENT / PLAN 1. Left medial knee pain likely secondary to MCL injury 2022 Doug is a 19 y.o. male who has comes in for evaluation ongoing left knee pain. MRI in 2022 demonstrating MCL injury with partial tearing of the mid segment, intact proximal and distal insertion. Did have initial improvement with PT, activity modification, however things have plateaued as of recently. Does describe some feeling of instability about the knee, however no significant repeat injury. Given prolonged symptoms, suspect this is due to never truly reducing activity enough allowing the MCL to scar down versus possible additional injury such as meniscus. PLAN: MRI, PT scheduled for later today. Do believe he would benefit from activity specifically working on proprioception, balance in the left knee. Activity Restrictions: No specific restrictions currently, pending results of MRI F/U: Will call patient with results of MRI and discuss next steps Patient Education: Ready to learn, no apparent learning barriers were identified; learning preferences include listening. Explained diagnosis and treatment plan; patient/child/caregiver expressed understanding of the content. * Anthony Brown M.D. - 05/27/2024 2:30 PM CDT Sports Medicine Supervisory Note Patient seen in collaboration with Dr. Thien Villanueva today. We reviewed and discussed the management of this patient. I agree with the plan of care as discussed. Please see documentation by Dr. Thien Villanueva for further details. 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 Doug reports left medial knee pain that started acutely 1.5 years ago when trying to cross country ski. He had some initial pain and swelling and showed an MCL injury. He did physical therapy in spring 2022 that spring due to injury. He was able to get back to sports last fall. He wore a hingedknee brace during basketball. He traveled abroad this past spring and did lots of hiking and backpacking. OBJECTIVE Physical Examination: General: Well-appearing patient in no significant distress Musculoskeletal: Inspection of the left knee is unremarkable other than maybe just a subtle prominence of the medial knee relative to the right on palpation there is no consistent concerning area of tenderness. No effusion. Range of motion of the knee is symmetric he is not quite able to bring his heel to his buttock but is symmetric. Full extension. Strength is 5/5 with resisted flexion and extension. Able to do a single leg squat but does have some mild dynamic knee valgus. Valgus stress testdoes reproduce some pain but do appear to have an endpoint somewhat difficult to say there is significant laxity. Rocío, negative posterior drawer negative varus stress test. Nahun fairly unremar kable. Radiograph interpretation: I personally have reviewed the radiographs of the left knee. From my interpretation they reveal no acute osseous abnormality. Assessment and Plan: 1. Left knee pain Doug has had ongoing left knee pain following a MCL injury roughly 1.5 years ago. We discussed that at this point in time I would recommend continued physical therapy to work on proprioception and dynamic stability of the knee. I think it is reasonable to proceed with an MRI to ensure that nothing has been missed and there has been adequate healing of the MCL. There is always the potential that there could have been lack of healing of the MCL or maybe coexisting injury that was not recognized on imaging. In the meantime we discussed he can do activity that is without significant discomfort or pain. We will communicate the results of the MRI once they have returned. Anthony Brown M.D. documented in this encounter Plan of Treatment Not on file documented as of this encounter Visit Diagnoses Diagnosis Pain Knee Left- Primary documented in this encounter Additional Health Concerns Assessment Noted Time PHQ-9 Depression Total Score: 4 10/09/19 18 12:01 AM POCKET CREASER documented as of this encounter Care Teams Desktop Manager Relationship Specialty Start Date End Date Elsewhere, Pcp PCP - General Internal Medicine 03/20/23 documented as of this encounter
--- OUTSIDE RECORDS SUMMARY | 2024-07-13 00:26 | XMS_ITS | Clinical Summary ---
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 1 11/12/2022 Resolved Problems Problem Noted Date Diagnosed Date Resolved Date Pneumomediastinum 12/02/2019 03/27/2023 Immunizations Name Administration Dates Next Due Covid-19 (Pfizer 12+) Bivalent 09/26/2022 Covid-19 (Pfizer) Dilution Required 09/28/2021,0 05/31/2021 Covid-19 (Pfizer) Ready To Use 03/01/2022 DTaP 05/29/2007,08/05/2004 DTaP / Hep B / IPV 2003,2003, 003 HIB (PRP-OMP) PedVax HIB - 3 Dose Series 2004,2003,2003 HPV 9 Valent 07/19/2021,,03/04/2021,01/20 Hepatitis A (Adult) 11/10/2011,06/21/2011 Hepatitis A (Pediatric) 11/10/2011,06/21/2011 IPV 05/29/2007 Influenza Quad (Fluarix/Fluzone/FluLaval) 0.5mL (SD-IIV4) 09/26/2022,09/28/2021,07/23/2020,06/30,06/26/2018,08/29/2017,08/11/2016 ,08/20/2015,07/09/2014,08/21/2013,08/08,06/21/2011,08/11/2010, 0,09/13/2009,06/23/2009 Influenza Quad (Flucelvax) 0 .5mL >6mon (ccIIV4) 08/11/2016,08/20/2015,08/21/2013,08/07,07/16/2006,09/21/2004 Influenza Quad (Flucelvax) 0 .5mL >6mon Vial (ccIIV4) 08/23/2012,06/21/2011,08/11/2010,10/21,09/13/2009,06/23/2009,08/08/2005 ,07/25/2004 Influenza Quad (Flumist) 0.2 mL 2-49 Yrs (LAIV4) 07/09/2014,08/23/2012,06/21/2011,08/11,10/21/2009,09/13/2009,06/23/2009 Influenza Trivalent (FluMist ) 0.2mL (2-49yrs) 08/23/2012,06/21/2011,08/11/2010,06/23 Influenza Trivalent (Fluad) 0.5mL (65 yrs &>) 10/21/2009,09/13/2009 Influenza Trivalent (Fluzone /Afluria) 5.0mL Multi-dose Vial 10/21/2009,09/13/2009,08/07/2008,07/16,08/08/2005,09/21/2004,07/25/2004 MMR 08/05/2004 MMRV 05/29/2007 Meningococcal Conjugate (Menveo) 04/29/2020,04/08 Pneumococcal Conjugate PCV7 08/05/2004,0 2003,2003,07/13 Tdap 04/26/2016 Varicella 2004 Family History Medical History Relation Name Comments No Known Problems Father Dementia Maternal Grandmother Chronic fatigue Mother No Known Problems Mother Other Mother B12 def. Cancer Paternal Grandfather colon ? Dementia Paternal Grandmother Relation Name Status Comments Brother 1 Alive Brother 2 Alive Father Alive Maternal Grandfather Alive Maternal Grandmother Mother Alive Paternal Grandfather Paternal Grandmother Social History Tobacco Use Types Packs/Day Years Used Date Smoking Tobacco: Never Smokeless Tobacco: Never Tobacco Cessation:Counseling Given: Not Answered Alcohol Use Standard Drinks/Week Comments No 0 (1 standard drink = 0.6 oz pur e alcohol) Overall Financial Resource Strain (CARDIA) Answe r Date Recorded How hard is it for you to pa y for the very basics like food, housing, medical care, and heating? Not very hard 09/11/2023 Sex and Gender Information Value Date Recorded Sex Assigned at Not on file Gender Identity Not on file Sexual Orientation Not on file Job Start Date Occupation Industry Not on file Not on file Not on file Last Filed Vital Signs Vital Sign Reading Time Taken Comments Blood Pressure 138/78 09/11/2023 10:33 AM RUBY RAILS DEVELOPER Pulse 60 09/11/2023 10:33 AM RUBY RAILS DEVELOPER Temperature 36.2 ??C (97.1 ??F) 09/11/2023 10:[address] Respiratory Rate 16 09/11/2023 10:33 AM RUBY RAILS DEVELOPER Oxygen Saturation 98% 05/18/2023 10:16 AM CDT Inhaled Oxygen Concentration - - Weight 93.4 kg (206 lb) 09/11/2023 10:33 AM RUBY RAILS DEVELOPER Height 193 cm (6' 4) 09/11/2023 10:33 AM RUBY RAILS DEVELOPER Body Mass Index 25.08 09/11/2023 10:33 AM RUBY RAILS DEVELOPER Plan of Treatment Health Maintenance Due Date Last Done Comments Hepatitis C Screening 2003 BMI Counseling 2021 04/29/2020, 04/08, 04/18/2019, Additional history exists Depression Screening 08/02/2022 08/02/2021, 06/14/2021, 05/16/2021, Additional history exists Preventative Health Evaluation 03/27/2024 03/27/2023, 05/16/2021, 04/29/2020, Additional history exists COVID-19 Vaccine () 06/08/2024 09/26/2022, 03/01/2022, 09/28/2021, Additional history exists Influenza Vaccine (#1) 2024 , 09/28/2021, 07/23/2020, Additional history exists DTap / Tdap / Td (7 - Td or Tdap) 04/26/2026 04/26/2016, 04/26/2016, 05/29/2007, Additional history exists Hepatitis B Vaccines Completed 2003, 2003, 2003, Additional history exists Pneumococcal Vaccine Completed 08/05/2004, 2003, 2003, Additional history exists MMR Vaccine / born after 1959 Completed 05/29/2007, 05/29/2007, 08/05/2004, Additional history exists HPV VACCINES Completed 07/19/2021, 02/06, 03/04/2021, Additional history exists RSV Ped < 20 months Aged Out No longe r eligible based on patient's age to complete this topic Care Teams Research Biologist Relationship Specialty Start Date End Date Jasen Hallman MD [address] [place] [address] [place] [address] PCP - General Family Medicine 03/27/23
--- OUTSIDE RECORDS SUMMARY | 2024-07-13 00:26 | XMS_ITS | Encounter Summary ---
Author Organization [facility] Address [address] [place] [address] Care Team Providers Care Retail Banking Manager Name Role Phone Elsewhere, Pcp Primary Care Provider Unavailabl e Encounter Details Date Type Department Care Team (Late st Contact Info) Description 05/22/2024 CPAP Download Remote Patient Monitoring [facility] [address] [place] [address] [facility], Provider, M.B., Ph.D. Social History Tobacco Use Types Packs/Day Years Used Date Smoking Tobacco: Never [facility] ScriptRxities Answer Date Recorded In the past [address] [facility] electric, gas, oil, or water [employer] threatened to shut off services in your [...] often do you attend chur ch or denominational services? 1 to 4 times per year 02/19/2023 Do you belong to any clubs o r organizations such as scientology groups, unions, fraternal or athletic groups, or [...] and heating? Not hard at all 03/20/2023 [facility] of Occupat ional Health - [...] your living situation today? I have a [facility] place to live 05/22/2024 Education Answer Date Recorded What is the highest level of school you have completed or the highest degree you have received? 12th grade 02/19/2023 Sex and Gender Information Value Date Recorded Sex Assigned at Male 10/11/2021 4:56 PM APPLICATIONS INSTRUCTOR Gender Identity Male 10/11/2021 4:56 PM APPLICATIONS INSTRUCTOR Sexual Orientation Straight 10/11/2021 4: 56 PM APPLICATIONS INSTRUCTOR documented as of this encounter Plan of Treatment Not on file documented as of this encounter Visit Diagnoses Not on filedocumented in this encounter Additional Health Concerns Assessment Noted Time PHQ-9 Depression Total Score: 4 10/09/19 18 12:01 AM APPLICATIONS INSTRUCTOR documented as of this encounter Care Teams Retail Banking Manager Relationship Specialty Start Date End Date Elsewhere, Pcp PCP - General Internal Medicine 03/20/23 documented as of this encounter
--- OUTSIDE RECORDS SUMMARY | 2024-07-13 00:26 | XMS_ITS | Encounter Summary ---
Author Organization [facility] Address [address] [place] [address] Care Team Providers Care Supply Crib Attendant Name Role Phone Elsewhere, Pcp Primary Care Provider Unavailabl e Reason for Referral * MRI/CAT/PET Scan (Routine) - Closed Specialty Diagnoses / Procedures Referred By Contac t Referred To Contact Radiology Diagnoses Pain Knee Left Procedures MR Knee Left without IV Contrast Anthony Brown M.D. [address] [place] [address] [facility] Referral ID Status Reason Start Date Expiration Date Visits Re quested Visits Authorized [id number] Closed 05/02/2024 05/02/2025 1 1 Reason for Visit * MRI/CAT/PET Scan (Routine) - Closed Specialty Diagnoses / Procedures Referred By Contac t Referred To Contact Radiology Diagnoses Pain Knee Left Procedures MR Knee Left without IV Contrast Anthony Brown M.D. [address] [place] [address] [facility] Referral ID Status Reason Start Date Expiration Date Visits Re quested Visits Authorized [id number] Closed 05/02/2024 05/02/2025 1 1 Encounter Details Date Type Department Care Team (Latest Contact Info) Description 05/27/2024 4:30 PM CDT - 05/27/2024 11:59 PM CDT Hospital Encounter Department of Radiology, [facility], in [place], [place] [address] [place] [address] Anthony Brown M.D. [address] [place] [address] Pain Knee Left Discharge Disposition: Home or Self Care Social History Tobacco Use Types Packs/Day Years Used Date Smoking Tobacco: Never [facility] [employer] Answer Date Recorded In the past 12 months has e electric, gas, oil, or water [employer] threatened to shut off services in your [...] often do you attend chur ch or buddhist services? 1 to 4 times per year 02/19/2023 Do you belong to any clubs o r organizations such as adventism groups, unions, fraternal or athletic groups, or [...] and heating? Not hard at all 03/20/2023 [facility] of Occupat ional Health - Occupational Stress [...] living situation today? I have a [facility] place to live 05/22/2024 Education Answer Date Recorded What is the highest level of school you have completed or the highest degree you have received? 12th grade 02/19/2023 Sex and Gender Information Value Date Recorded Sex Assigned at Male 10/11/2021 4:56 PM IRRADIATED FUEL HANDLER Gender Identity Male 10/11/2021 4:56 PM IRRADIATED FUEL HANDLER Sexual Orientation Straight 10/11/2021 4: 56 PM IRRADIATED FUEL HANDLER documented as of this encounter Medications at [...] 05/27/2024 6:07 PM CDT Pain Knee Left documented in this encounter Results * MR Knee Left without IV [...] size since 12/21/2022. Anthony MALIK MRI PROCEDURES documented in this encounter Visit Diagnoses Diagnosis Pain Knee Left documented in this encounter Additional Health Concerns Assessment Noted Time PHQ-9 Depression Total Score: 4 10/09/19 18 12:01 AM IRRADIATED FUEL HANDLER documented as of this encounter Care Teams Supply Crib Attendant Relationship Specialty Start Date End Date Elsewhere, Pcp PCP - General Internal Medicine 03/20/23 documented as of this encounter
--- OUTSIDE RECORDS SUMMARY | 2024-07-13 00:27 | XMS_ITS | Encounter Summary ---
Author Organization [facility] Address [address] [place] [address] Care Team Providers Care Culinary Worker Name Role Phone Elsewhere, Pcp Primary Care Provider Unavailabl e Encounter Details Date Type Department Care Team (Late st Contact Info) Description 08/24/2017 Confidential HX RST NO MAPPING Tammy Hoffman R.N. [address] [place] [phone] Social History Tobacco Use Types Packs/Day Years Used Date Smoking Tobacco: Never Assessed Sex and Gender Information Value Date Recorded Sex Assigned at Male 10/11/2021 4:56 PM CATALOG LIBRARIAN Gender Identity Male 10/11/2021 4:56 PM CATALOG LIBRARIAN Sexual Orientation Straight 10/11/2021 4: 56 PM CATALOG LIBRARIAN documented as of this encounter Progress Notes * Tammy Hoffman RRaulN. - 08/24/2017 3:00 PM CST DEMOGRAPHIC INFORMATION Clinic Number: [id number] Patient Name: Mr. Doug Colmenares Age: 12 Y Birthdate: 2005 Sex: M Address: [address] [place] [address] City: [place] [address] CONFIDENTIAL NOTE Service Date/Time: 24-Aug-2017 15:00 Provider: Tammy Hoffman RN Pager: [phone] Service: PDDRC Type/Desc: MIS Status: Fnl Revision #: 1 CHIEF COMPLAINT/PURPOSE OF VISIT Follow up. This phone communication was initiated by the patient/caller. The phone communication was with the patient's parent, Lois Colmenares. Phone number patient/caller is calling from or the number of the provider: . Follow-up phone number: Same as above. Patient/caller indicates it is appropriate to leave a detailed message, if needed. The patient's/caller's preferred language is Yoruba. HISTORY OF PRESENT ILLNESS I contacted Doug Abreu's mom in response to a portal message that was sent earlier today. Doug has recently been cutting himself. Doug's parents are very concerned and worried about this. Doug has had a difficult year with not being able to competitively swim, change in his weight along with his ongoing dizziness and fatigue. One area of frustration for Doug is inactivity. He likes to be busy doing something and with his chronic fatigue this has been very stressful for him. Lois says he has lots of friends and good family support. Doug is a very active with school activities, basketball and through his anabaptism. IMPRESSION/REPORT/PLAN #1 Follow up After talking with Doug's mom, I encouraged her to take him to the ED with any mention of hurting or harming himself or talk about suicide. I encouraged her to try to find someone that Doug could open up to about how he is feeling. I suggested a school counselor, his retail performance coach or someone through his anabaptism. She was appreciative and is looking forward to Doug seeing Sharon Sanchez this coming Sunday as well as follow up with Dr. Colón in October. I encouraged her to contact us with any questions or concerns. DISPOSITION OF CALL/COORDINATION OF CARE. Caller was instructed on self-care instructions. SELF-CARE INSTRUCTIONS. The patient/caller was instructed to call back if symptoms are persistent, changing, worsening, or if there are specific symptoms to watch for. RECOMMENDED LEVEL OF CARE. The patient/caller is willing and able to follow the nurse's recommendation. RESPONSE TO EDUCATION /INFORMATION GIVEN. Patient/caller able to teach back. REFERENCES UTILIZED. Nursing clinical judgment utilized. TYPE OF PHONE CALL. Telephone follow-up. Original: amb Electronically Signed: 24-Aug-2017 15:22 by Erlinda Hoffman RN Clinical Notes - [id number] Id: [id number] Status: Fnl documented in this encounter Plan of Treatment Not on file documented as of this encounter Visit Diagnoses Not on filedocumented in this encounter Additional Health Concerns Infection Onset Date Last Indicated Resolved Time COVID19 Pending 10/31/2021 10/31/2021 10/31/2021 1 :10 PM CATALOG LIBRARIAN documented as of this encounter Care Teams Culinary Worker Relationship Specialty Start Date End Date Elsewhere, Pcp PCP - General Internal Medicine 03/20/23 documented as of this encounter
--- OUTSIDE RECORDS SUMMARY | 2024-07-13 00:27 | XMS_ITS | Encounter Summary ---
Author Organization [facility] Address [address] [place] [address] Care Team Providers Care Internet Sales Associate Name Role Phone Elsewhere, Pcp Primary Care Provider Unavailabl e Reason for Referral * Outpatient (Routine) - Closed Specialty Diagnoses / Procedures Referred By Contcullen t Referred To Contact Sports Medicine Diagnoses Pain Knee Left Anthony Brown M.D. 200 [place] [address] [facility] Referral ID Status Reason Start Date Expiration Date Visits Re quested Visits Authorized [id number] Closed 05/02/2024 11/01/2025 1 1 * MRI/CAT/PET Scan (Routine) - Closed Specialty Diagnoses / Procedures Referred By Contac t Referred To Contact Radiology Diagnoses Pain Knee Left Procedures MR Knee Left without IV Contrast Anthony Brown M.D. 200 [place] [address] [facility] Referral ID Status Reason Start Date Expiration Date Visits Re quested Visits Authorized [id number] Closed 05/02/2024 05/02/2025 1 1 * Outpatient (Routine) - Closed Specialty Diagnoses / Procedures Referred By Contac t Referred To Contact Diagnoses Pain Knee Left Procedures DX Knee Left 3 Views Anthony Brown M.D. [address] [place] [address] [facility] Referral ID Status Reason Start Date Expiration Date Visits Re quested Visits Authorized [id number] Closed 05/02/2024 05/02/2025 1 1 Encounter Details Date Type Department Care Team (Late st Contact Info) Description 05/02/2024 Orders Only Department of Sports Medicine in [place], [place] [address] [place] [phone] Anthony Brown M.D. [address] [place] [phone] Pain Knee Left (Primary Dx) Social History Tobacco Use Types Packs/Day Years Used Date Smoking Tobacco: Never Humiliation, Afraid, Rape, and Kick questionnair e [...] week 02/19/2023 How often do you attend [facility] or rastafarian services? 1 to 4 times per year 02/19/2023 Do you belong to any clubs o r organizations such as confucianist groups, unions, fraternal or athletic groups, or [...] and heating? Not hard at all 03/20/2023 [facility] of Occupat ional Health - Occupational Stress [...] exercise (like a brisk walk)? 5 days 02/19/2023 On average, how many minutes do you engage in exercise at this level? 100 min 02/19/2023 Hunger Vital Sign Answer Date Recorded Within the past 12 months, y ou worried that your food would run out before you got the money to buy more. Never true 03/20/20 23 Within the past 12 months, t he food you bought just didn't last and you didn't have money to get more. Never true 03/20/2023 PRAPARE - Transportation Answer Date Re corded In the past 12 months, has l ack of transportation kept you from medical appointments or from getting medications? No 03/08 In the past 12 months, has l ack of transportation kept you from meetings, work, or from getting things needed for daily living? No 03/20/2023 Nutrition Answer Date Recorded Nutrition: EVOO Fat Source No 02/19 On average, how many serving s of fruits and vegetables do you eat per day (serving size is equal to 1 cup or approximately the size of a tennis ball)? 4-5 02/19/2023 Dental Answer Date Recorded Dental: Regular Dentist Yes 10/11/19 Employment Answer Date Recorded Employment status N/A 02/19/2023 Housing Stability Answer Date Recorded What is your living situation today? I have a [facility] place to live 03/20/2023 Education Answer Date Recorded What is the highest level of school you have completed or the highest degree you have received? 12th grade 02/19/2023 Sex and Gender Information Value Date Recorded Sex Assigned at Male 10/11/2021 4:56 PM BRASS BUFFER Gender Identity Male 10/11/2021 4:56 PM BRASS BUFFER Sexual Orientation Straight 10/11/2021 4: 56 PM BRASS BUFFER documented as of this encounter Plan of Treatment Scheduled Referrals Name Type Priority Associated Diagnoses Orde r Schedule Sports Medicine - PT/AT Eval and Treat Outpatient Referral Routine Pain Knee Left Expected: 05/02/2024 (Approximate), Expires: 08/02/2025 documented as of this encounter Results * MR Knee Left [...] joint, increased in size since 12/21/2022. Anthony OWENSG MRI PROCEDURES * DX Knee Left 3 [...] Brown M.D. IMG DIAGNOSTIC IMAGI NG PROCEDURES documented in this encounter Visit Diagnoses Diagnosis Pain Knee Left- Primary Pain Knee Left Pain Knee Left documented in this encounter Additional Health Concerns Assessment Noted Time PHQ-9 Depression Total Score: 4 10/09/19 18 12:01 AM BRASS BUFFER documented as of this encounter Care Teams Internet Sales Associate Relationship Specialty Start Date End Date Elsewhere, Pcp PCP - General Internal Medicine 03/20/23 documented as of this encounter
--- OUTSIDE RECORDS SUMMARY | 2024-07-13 00:27 | XMS_ITS | Encounter Summary ---
Author Organization [facility] Address [address] [place] [address] Care Team Providers Care Outside Sales Associate Name Role Phone Elsewhere, Pcp Primary Care Provider Unavailabl e Encounter Details Date Type Department Care Team (Late st Contact Info) Description 01/19/2024 CPAP Download Remote Patient Monitoring [facility] [address] [place] [address] [facility], Provider, M.B., Ph.D. Social History Tobacco Use [...] often do you attend chur ch or jew services? 1 to 4 times per year 02/19/2023 Do you belong to any clubs o r organizations such as evangelical groups, unions, fraternal or athletic groups, or [...] and heating? Not hard at all 03/20/2023 [facility] of Occupat ional Health - Occupational Stress [...] your living situation today? I have a [facility] place to live 03/20/2023 Education Answer Date Recorded What is the highest level of school you have completed or the highest degree you have received? 12th grade 02/19/2023 Sex and Gender Information Value Date Recorded Sex Assigned at Male 10/11/2021 4:56 PM PRODUCE INSPECTOR Gender Identity Male 10/11/2021 4:56 PM PRODUCE INSPECTOR Sexual Orientation Straight 10/11/2021 4: 56 PM PRODUCE INSPECTOR documented as of this encounter Plan of Treatment Not on file documented as of this encounter Visit Diagnoses Not on filedocumented in this encounter Additional Health Concerns Assessment Noted Time PHQ-9 Depression Total Score: 4 10/09/19 18 12:01 AM PRODUCE INSPECTOR documented as of this encounter Care Teams Outside Sales Associate Relationship Specialty Start Date End Date Elsewhere, Pcp PCP - General Internal Medicine 03/20/23 documented as of this encounter
--- OUTSIDE RECORDS SUMMARY | 2024-07-13 00:27 | XMS_ITS | Encounter Summary ---
Author Organization [facility] Address [address] [place] [address] Care Team Providers Care Wrapper Dipper Name Role Phone Elsewhere, Pcp Primary Care Provider Unavailabl e Encounter Details Date Type Department Care Team (Late st Contact Info) Description 04/21/2024 CPAP Download Remote Patient Monitoring [facility] [address] [place] [address] [facility], Provider, M.B., Ph.D. Social History Tobacco Use Types Packs/Day Years Used Date Smoking Tobacco: Never [facility] Endoclearities Answer Date Recorded In the past 12 months has [facility] electric, gas, oil, or water [employer] threatened to shut off services in your [...] often do you attend chur ch or judaism services? 1 to 4 times per year 02/19/2023 Do you belong to any clubs o r organizations such as christianity groups, unions, fraternal or athletic groups, or [...] and heating? Not hard at all 03/20/2023 [facility] of Occupat ional Health - Occupational [...] your living situation today? I have a [facility] place to live 05/22/2024 Education Answer Date Recorded What is the highest level of school you have completed or the highest degree you have received? 12th grade 02/19/2023 Sex and Gender Information Value Date Recorded Sex Assigned at Male 10/11/2021 4:56 PM COSTUME SEAMSTRESS Gender Identity Male 10/11/2021 4:56 PM COSTUME SEAMSTRESS Sexual Orientation Straight 10/11/2021 4: 56 PM COSTUME SEAMSTRESS documented as of this encounter Plan of Treatment Not on file documented as of this encounter Visit Diagnoses Not on filedocumented in this encounter Additional Health Concerns Assessment Noted Time PHQ-9 Depression Total Score: 4 10/09/19 18 12:01 AM COSTUME SEAMSTRESS documented as of this encounter Care Teams Wrapper Dipper Relationship Specialty Start Date End Date Elsewhere, Pcp PCP - General Internal Medicine 03/20/23 documented as of this encounter
--- OUTSIDE RECORDS SUMMARY | 2024-07-13 00:27 | XMS_ITS | Encounter Summary ---
Author Organization [facility] Address [address] [place] [address] Care Team Providers Care Finish Specialist Name Role Phone Elsewhere, Pcp Primary Care Provider Unavailabl e Encounter Details Date Type Department Care Team (Late st Contact Info) Description 03/21/2024 CPAP Download Remote Patient Monitoring [facility] [address] [place] [address] [facility], Provider, M.B., Ph.D. Social History Tobacco [...] often do you attend chur ch or hinduism services? 1 to 4 times per year 02/19/2023 Do you belong to any clubs o r organizations such as protestant groups, unions, fraternal or athletic groups, or [...] and heating? Not hard at all 03/20/2023 [facility] of Occupat ional Health - Occupational Stress [...] your living situation today? I have a [facility] place to live 03/20/2023 Education Answer Date Recorded What is the highest level of school you have completed or the highest degree you have received? 12th grade 02/19/2023 Sex and Gender Information Value Date Recorded Sex Assigned at Male 10/11/2021 4:56 PM ADVISORY SERVICES ASSOCIATE Gender Identity Male 10/11/2021 4:56 PM ADVISORY SERVICES ASSOCIATE Sexual Orientation Straight 10/11/2021 4: 56 PM ADVISORY SERVICES ASSOCIATE documented as of this encounter Plan of Treatment Not on file documented as of this encounter Visit Diagnoses Not on filedocumented in this encounter Additional Health Concerns Assessment Noted Time PHQ-9 Depression Total Score: 4 10/09/19 18 12:01 AM ADVISORY SERVICES ASSOCIATE documented as of this encounter Care Teams Finish Specialist Relationship Specialty Start Date End Date Elsewhere, Pcp PCP - General Internal Medicine 03/20/23 documented as of this encounter
--- OUTSIDE RECORDS SUMMARY | 2024-07-13 00:27 | XMS_ITS | Encounter Summary ---
Author Organization [facility] Address [address] [place] [address] Care Team Providers Care Websphere Commerce Architect Name Role Phone Elsewhere, Pcp Primary Care Provider Unavailabl e Reason for Visit * Reason Onset Date Comments Pre-visit Intake 05/22/2024 Encounter Details Date Type Department Care Team (Latest Contact Info) Description 05/22/2024 4:45 PM CDT Clinical Communication Virtual Review in [address] [phone] Pre-visit Intake Social History Tobacco Use Types Packs/Day Years Used Date Smoking Tobacco: Never [facility] Utilities Answer Date Recorded In the past 12 months has [facility] electric, gas, oil, or water company threatened [...] often do you attend chur ch or holiness services? 1 to 4 times per year 02/19/2023 Do you belong to any clubs o r organizations such as spiritism groups, unions, fraternal or athletic groups, or [...] and heating? Not hard at all 03/20/2023 [facility] of Occupat ional Health - Occupational [...] your living situation today? I have a [facility] place to live 05/22/2024 Education Answer Date Recorded What is the highest level of school you have completed or the highest degree you have received? 12th grade 02/19/2023 Sex and Gender Information Value Date Recorded Sex Assigned at Male 10/11/2021 4:56 PM HOSIERY BAGGER Gender Identity Male 10/11/2021 4:56 PM HOSIERY BAGGER Sexual Orientation Straight 10/11/2021 4: 56 PM HOSIERY BAGGER documented as of this encounter Plan of Treatment Not on file documented as of this encounter Visit Diagnoses Not on filedocumented in this encounter Additional Health Concerns Assessment Noted Time PHQ-9 Depression Total Score: 4 10/09/19 18 12:01 AM HOSIERY BAGGER documented as of this encounter Care Teams Websphere Commerce Architect Relationship Specialty Start Date End Date Elsewhere, Pcp PCP - General Internal Medicine 03/20/23 documented as of this encounter
--- OUTSIDE RECORDS SUMMARY | 2024-07-13 00:27 | XMS_ITS | Encounter Summary ---
Author Organization [facility] Address [address] [place] [address] Care Team Providers Care City Routeman Name Role Phone Elsewhere, Pcp Primary Care Provider Unavailabl e Encounter Details Date Type Department Care Team (Late st Contact Info) Description 02/19/2024 CPAP Download Remote Patient Monitoring [facility] [address] [place] [address] [facility], Provider, M.B., Ph.D. Social History Tobacco [...] often do you attend chur ch or roman catholic services? 1 to 4 times per year 02/19/2023 Do you belong to any clubs o r organizations such as latter day groups, unions, fraternal or athletic groups, or [...] and heating? Not hard at all 03/20/2023 [facility] of Occupat ional Health - Occupational Stress [...] your living situation today? I have a [facility] place to live 03/20/2023 Education Answer Date Recorded What is the highest level of school you have completed or the highest degree you have received? 12th grade 02/19/2023 Sex and Gender Information Value Date Recorded Sex Assigned at Male 10/11/2021 4:56 PM MACHINE WHITENER Gender Identity Male 10/11/2021 4:56 PM MACHINE WHITENER Sexual Orientation Straight 10/11/2021 4: 56 PM MACHINE WHITENER documented as of this encounter Plan of Treatment Not on file documented as of this encounter Visit Diagnoses Not on filedocumented in this encounter Additional Health Concerns Assessment Noted Time PHQ-9 Depression Total Score: 4 10/09/19 18 12:01 AM MACHINE WHITENER documented as of this encounter Care Teams City [place] Relationship Specialty Start Date End Date Elsewhere, Pcp PCP - General Internal Medicine 03/20/23 documented as of this encounter
[2024-07-13 00:48] LABS: Basophils Absolute Auto 0.05 K/uL (0.00-0.30); Basophils Percent Auto 0.5 % (0.0-3.0); Eosinophils Absolute Auto 0.01 K/uL (0.00-0.50); Eosinophils Percent Auto 0.1 % (0.0-7.0); Hematocrit 43.7 % (37.0-53.0); Hemoglobin* 14.8 gm/dL (13.5-17.5); Immature Granulocytes Abs Auto 0.04 K/uL (0.00-0.30); Immature Granulocytes Pct Auto 0.4 %; Lymphocytes Absolute Auto 2.23 K/uL (0.90-2.90); Lymphocytes Percent Auto 21.6 % (20-44); Mean Corpuscular HGB Conc 34 gm/dL (32-36); Mean Corpuscular Hemoglobin 29 pg (26-34); Mean Corpuscular Volume 86 fL (80-100); Monocytes Percent Auto 9.5 % (0.0-11.0); Neutrophils Absolute Auto 7.02 K/uL (1.7-7.0); Neutrophils Percent Auto 67.9 % (42.0-72.0); Platelet Count* 244 K/uL (140-440); RDW Coefficient of Variation % 12.5 % (11.5-15.5); Red Blood Count 5.09 m/uL (4.30-5.90); White Blood Count* 10.33 K/uL (4.50-11.00)
[2024-07-13 00:54] LABS: Slide Review Reflex No
[2024-07-13 01:09] LABS: C Reactive Protein* 4.1 mg/dL (0.5-1.0)
[2024-07-13] MEDS: 0.9 % SODIUM CHLORIDE 1000 ml 1,000 ML IV (01:15)
[2024-07-13] MEDS: cefTRIAXone 2 GM in 0.9 % SODIUM CHLORIDE Mini-bag 100 ML IVPB (01:24)
== END 2024-07-13 02:56 | disposition home or self-care (01) ==
PROVIDERS: Emergency Provider Family Medicine
DX: L03.115 Cellulitis of right lower limb (principal)
CPT/HCPCS: 36415; 85025; 86140; 96365; 99284; J0696; J7030